=== PATIENT | male | born 1970 | race Caucasian/White ===

== ENCOUNTER 2017-03-23 18:16 | Emergency (ER) | payer SELFPAY ==
[2017-03-23] MEDS ORDERED: TRIPLE ANTIBIOTIC TP ONE (20:12)
--- NOTE | 2017-03-23 20:18 | Emergency Department Report ---
Suture/Staple Removal - [facility] Chief Complaint: Laceration/Recheck/Suture Stated Complaint: CUT LEG Time Seen by Provider: 03/23/17 19:37 When Sutures or [place] Placed: 11-14 Days Ago (placed 12 days ago) Wound Location: 46-year-old male presents with complaint of sutures to right calf region ED Review of Systems ROS: Stated complaint: CUT LEG Other details as noted in HPI Constitutional: denies: chills, fever Eyes: denies: eye pain, eye discharge, vision change ENT: denies: ear pain, throat pain Respiratory: denies: cough, shortness of breath, wheezing Cardiovascular: denies: chest pain, palpitations Endocrine: no symptoms reported Gastrointestinal: denies: abdominal pain, nausea, diarrhea Genitourinary: denies: urgency, dysuria Musculoskeletal: denies: back pain, joint swelling, arthralgia Skin: denies: rash, lesions Neurological: denies: headache, weakness, paresthesias Psychiatric: denies: anxiety, depression Hematological/Lymphatic: denies: easy bleeding, easy bruising ED Past Medical Hx - Past Medical History Previous Medical History?: No - Surgical History Past Surgical History?: No - Social History Smoking Status: Current Some Day Smoker Substance Use Type: None - Medications Home Medications: Home Medications Medication Instructions Recorded Confirmed Last Taken Type Neomycn/Baci Zn/Pmyx Bs/Pramox 28 gm TP BID #1 oint...g. 03/23/17 Unknown Rx [Triple Antibioti-Pain Rlf Oint] Suture Removal Exam - Exam General: Vital signs noted. No distress. Alert and acting appropriately. Wound: No Pathologic Erythema, No Tenderness, No Drainage, No Pus, No Wound Dehiscence Other Systems: All other systems reviewed and are unremarkable. ED Course Vital Signs 03/23/17 03/23/17 03/23/17 18:24 19:26 19:28 Temperature 98.5 F Pulse Rate 83 80 Respiratory 18 20 20 Rate Blood Pressure 168/105 Blood Pressure 175/98 [Left] O2 Sat by Pulse 98 98 98 Oximetry ED Recheck MDM - Medical Decision Making A/P: Suture removal removal right calf asymptomatic hypertension 1-16 nylon sutures removed from laceration site right calf region 2-no clinical signs of infection, no wound dehiscence 3-I advised patient to return to the ED for any purulent discharge any significant erythema or increased pain at site, triple antibiotic ointment to area of scab and local wound care 4-states that he received tetanus vaccine update 2 weeks ago 5-primary care follow-up. Patient is hypertensive but is asymptomatic no chest pain headache dizziness nausea vomiting abdominal pain. I advised patient of the slightly elevated blood pressure and referred him to primary care Critical care attestation.: If time is entered above; I have spent that time in minutes in the direct care of this critically ill patient, excluding procedure time. ED Disposition Clinical Impression: Visit for suture removal Disposition: DISCHARGED TO HOME OR SELFCARE Is pt being admited?: No Does the pt Need Aspirin: No Condition: Stable Instructions: Suture Removal (ED), Acute Wound Care (ED) Prescriptions: Neomycn/Baci Zn/Pmyx Bs/Pramox [Triple Antibioti-Pain Rlf Oint] 28 gm TP BID #1 oint...g. Referrals: [facility] [Provider Group] - 3-5 Days Forms: Accompanied Note, Work/School Release Form(ED) Time of Disposition: 20:13 Print Language: TURKISH
[2017-03-23 20:51] VITALS: BP 162/108
== END 2017-03-23 20:25 | disposition home or self-care (01) ==
LOC: ED 18:16
DX: Z48.02 Encounter for removal of sutures (principal); Z72.0 Tobacco use
CPT/HCPCS: A6250